=== PATIENT | male | born 2000 | race African-American/Black ===

== ENCOUNTER 2019-01-08 21:20 | Emergency (ER) | payer MEDICAID ==
[~2019-01-08] VITALS: Ht 172.7 cm; Wt 59.0 kg
[2019-01-08 21:43] VITALS: BP_SYST 124
--- NOTE | 2019-01-08 21:43 | NUR ---
Patient triaged and placed in waiting room. VSS and patient appears in no acute distress at this time. Accompanied by friend, awaiting available bed, and MD notified of need for MSE.
--- NOTE | 2019-01-09 01:23 | NUR ---
Patient to ER bed 4 to gown for evaluation. Side rails up. Report given to THOMAS MITCHELL.
--- NOTE | 2019-01-09 01:30 | NUR ---
ER at bedside examining patient.
--- NOTE | 2019-01-09 02:42 | NUR ---
Patient given written and verbal discharge instructions and verbalizes understanding. ER MD discussed with patient the results and treatment provided. Patient in stable condition. ID arm band removed. no Rx of given. Patient educated on pain management and to follow up with PMD. Pain Scale 2/10. Opportunity for questions provided and answered. Medication side effect fact sheet provided.
[2019-01-09 02:45] VITALS: BP_SYST 121
== END 2019-01-09 02:45 | disposition home or self-care (01) ==
LOC: SED 21:30
DX: S09.90XA Unspecified injury of head, initial encounter (principal); Z88.8 Allergy status to other drugs, medicaments and biological substances; W01.190A Fall on same level from slipping, tripping and stumbling with subsequent striking against furniture, initial encounter; Y93.89 Activity, other specified; Y92.89 Other specified places as the place of occurrence of the external cause; Y99.8 Other external cause status
CPT/HCPCS: 99281

== ENCOUNTER 2021-01-25 19:00 | Emergency (ER) | payer SELFPAY ==
[~2021-01-25] VITALS: Ht 172.7 cm; Wt 58.1 kg
[2021-01-25 19:42] VITALS: BP_SYST 139
[2021-01-26 01:43] LABS: BILIRUBIN,URINE NEGATIVE (NEGATIVE); BLOOD, URINE NEGATIVE (NEGATIVE); COLOR,URINE YELLOW (YELLOW); GLUCOSE,URINE NEGATIVE (NEGATIVE); KETONES,URINE NEGATIVE (NEGATIVE); LEUKOCYTE ESTERASE ,URINE 2+ (NEGATIVE); NITRITE, URINE NEGATIVE (NEGATIVE); PROTEIN URINE NEGATIVE (NEGATIVE); UROBILINOGEN,URINE 0.2 (0.2-1.0)
[2021-01-26 01:44] LABS: CLARITY/URINE SLIGHTLY CLOUDY (CLEAR)
[2021-01-26 02:22] LABS: BACTERIA,URINE FEW /HPF (None Seen); RBC,URINE 0-3 /HPF (0-3)
--- NOTE | 2021-01-26 03:54 | NUR ---
Patient to ER bed 8 to gown for evaluation. Side rails up.
[2021-01-26] MEDS ORDERED: cefTRIAXone 1 GM VIAL ONE (03:56)
[2021-01-26] MEDS ORDERED: LIDOCAINE 1%, 20 ML MDV 20 ML ONE (03:57)
[2021-01-26] MEDS ORDERED: AZITHROMYCIN 250 MG TABLET ONE (03:59)
[2021-01-26] MEDS: cefTRIAXone 0.75 GM in LIDOCAINE 1%, 20 ML MDV 2.1 ML IM ONE (04:03)
[2021-01-26] MEDS: AZITHROMYCIN 250 MG TABLET PO ONE (04:03)
--- NOTE | 2021-01-26 04:03 | NUR ---
Patient medicated per MD orders. Patient tolerated well. Will monitor for reaction
[2021-01-26] MEDS ORDERED: NITR-85 PO (04:09)
--- NOTE | 2021-01-26 04:11 | NUR ---
ER Dr. Paige at bedside examining patient.
[2021-01-26 04:25] VITALS: BP_SYST 132
--- NOTE | 2021-01-26 04:25 | NUR ---
Patient given written and verbal discharge instructions and verbalizes understanding. ER MD discussed with patient the results and treatment provided. Patient in stable condition. ID arm band removed. NO IV Rx of Macrobid given. Patient educated on pain management and to follow up with PMD. Pain Scale 6/10. Opportunity for questions provided and answered. Medication side effect fact sheet provided.
== END 2021-01-26 04:25 | disposition home or self-care (01) ==
LOC: SED 19:00
DX: N34.2 Other urethritis (principal)
CPT/HCPCS: 81000; 87086; 87491; 87591; 96372; 99283; J0696; J2001; Q0144